=== PATIENT | female | born 1955 | race Caucasian/White ===

== ENCOUNTER 2025-02-15 12:23 | Inpatient (IN) | payer OTHER, SELFPAY ==
[2025-02-15] VITALS (29 sets, daily range): BP systolic 89–167; BP diastolic 15–103; BMI 35.3
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
[2025-02-15 09:22] LABS: % Basophils 1.2 % (0-2); % Eosinophils 2.2 % (0-6); % Immature Granulocytes 0.8 % (0-0.5); % Lymphocytes 17.6 % (20.5-51.1); % Monocytes 5.6 % (1.7-9.3); % Neutrophils 72.6 % (42.2-75.2); Absolute Basophils 0.1 10^3/uL (0-0.2); Absolute Eosinophils 0.2 10^3/uL (0-0.7); Absolute Immature Granulocytes 0.1 10^3/uL (0-0.05); Absolute Lymphocytes 1.6 10^3/uL (1.2-3.4); Absolute Monocytes 0.5 10^3/uL (0.1-0.6); Absolute Neutrophils 6.6 10^3/uL (1.4-6.5); Hematocrit 38.4 % (37.0-47.0); Mean Corp Hgb Conc. 33.9 g/dL (33.0-37.0); Mean Corpuscular Hgb 30.9 pg (27.0-31.0); Mean Corpuscular Volume 91.2 fL (81.0-99.0); Mean Platelet Volume 10.9 fL (7.4-10.4); Nucleated Red Blood Cells % 0 %; Platelet Count 201 10^3/uL (130-400); Red Blood Cell Count 4.21 10^6/uL (4.20-5.40); Red Cell Dist. Width 14.1 % (11.5-14.5)
[2025-02-15] MEDS: TORADOL 30 MG IV (09:26)
[2025-02-15 09:36] LABS: ALT (SGPT) < 10 U/L (0-35); AST (SGOT) 16 U/L (14-36); Albumin 4.7 g/dl (3.5-5.0); Alkaline Phosphatase 101 U/L (38-126); Blood Urea Nitrogen 14 mg/dl (7-17); Calcium 10.1 mg/dl (8.4-10.2); Carbon Dioxide 23 mmol/L (22-30); Chloride 111 mmol/L (98-107); Estimated Creatinine Clearance 52 ml/min; Glucose 108 mg/dl (70-99); Potassium 3.8 mmol/L (3.5-5.1); Sodium 142 mmol/L (135-145); Total Bilirubin 0.5 mg/dl (0.2-1.3); Total Protein 8.3 g/dl (6.3-8.2); eGFR > 60.00
[2025-02-15 09:39] LABS: Erythrocyte Sed Rate 37 mm/hour (0-20)
[2025-02-15 09:53] LABS: Troponin I 0.081 ng/ml
[2025-02-15] MEDS: NITROSTAT (SUBLINGUAL) 0.4 MG SL ×3 (10:11→10:34)
[2025-02-15] MEDS: LOW STRENGTH ASPIRIN 324 MG PO (10:11)
[2025-02-15] MEDS: HEPARIN 4000 UNITS IV (10:36)
[2025-02-15] MEDS: HEPARIN 25000 UNITS/250 ML IV (10:39)
[2025-02-15 10:50] LABS: APTT 27.2 Sec (23.4-35.0)
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
--- NOTE | 2025-02-15 11:38 | HPS.HSE ---
Family Physician
-
Family Physician: Fredi Miller
Chief Complaint
-
Arm heaviness, chest pressure
History of Present Illness
69-year-old female presents with symptoms of bilateral arm heaviness and subsequent chest pressure, nausea. Symptoms initially started last night around 10 PM and continued on and off all night long but this morning became significantly more
intense prompting her evaluation in the emergency room.
Denies history of similar symptoms in the past. Denies cardiovascular history.
Is sedentary at home, does not exercise. She also realizes that her lifestyle is not healthy. She does not eat well and she continues to smoke.
Medical History
Past Medical History
Past Medical History: Reports Other
Additional Past Medical History:
Hypothyroidism
Essential hypertension
Past Surgical History: Reports Other
Additional Past Surgical History:
Right nephrectomy
Social History
Tobacco: Smoker
Alcohol: None
Drug: None
Personal:
Living: With Family
Employment: Retired
Family History
Family History: Not pertinent
Allergies / Home Medications
Allergies reflects when Allergies were last updated in [employer].
Home Medications with original date entered in [employer]
Allergy/Medication List:
Allergies
Allergy/AdvReac Type Severity Reaction Status Date / Time
codeine Allergy Hives Verified 02/15/25 08:45
Home Medications
lisinopril 40 mg tablet 40 mg PO DAILY Blood Pressure 03/05/19
diltiazem HCl 240 mg capsule,24 hr,extended release 240 mg PO DAILY Blood Pressure 02/15/25
levothyroxine 50 mcg tablet (Synthroid) 50 mcg PO DAILY Thyroid 02/15/25
Review of Systems
-
History Source: Patient
A 12 point ROS was completed and negative except as noted: Yes
Physical Exam
Vital Signs
Vital Signs
Temp Pulse Resp BP Pulse Ox
98.9 F 63 13 142/85 97
02/15/25 08:45 02/15/25 11:00 02/15/25 11:00 02/15/25 11:00 02/15/25 11:00
Physical Exam
General: Well Developed, Well Nourished, No Apparent Distress and Comfortable
HEENT: NormoCephalic, Anicteric and Moist mucous membranes
Respiratory: Wheezes (Mild end expiratory wheezes)
Cardiac: S1/S2 and Regular Rhythm
Breast: Deferred by me
GI: Soft, Non Tender and Non Distended
Genito-urinary: Deferred by me
Musculoskeletal: No Clubbing, No Cyanosis and No Edema
Skin: Warm and Dry
Neuro: AO x 3
Hematologic/Lymphatic: No Lymphadenopathy
Psych: Calm
Laboratory Results
-
02/15/25 09:12
02/15/25 09:12
Laboratory Results
APTT 27.2 Sec (23.4-35.0) 02/15/25 10:21
Total Bilirubin 0.5 mg/dl (0.2-1.3) 02/15/25 09:12
AST 16 U/L (14-36) 02/15/25 09:12
ALT < 10 U/L (0-35) 02/15/25 09:12
Alkaline Phosphatase 101 U/L (38-126) 02/15/25 09:12
Troponin I 0.081 ng/ml H* 02/15/25 09:12
Impression/Plan
-
ACS -presentation with bilateral arm and chest heaviness, nausea. Mild troponin elevation noted. EKG shows normal sinus rhythm with nonspecific ST/T wave abnormality.
Admit to IVU. N.p.o., await cardiac catheterization. Cardiology consulted. Check echocardiogram.
Started on IV heparin, nitroglycerin. Currently chest pain-free.
Start aspirin daily. Needs to work on lifestyle changes including diet, exercise, weight loss.
Check lipid panel. Not currently on a statin, states she had side effects from a statin in the past but cannot remember which one.
Essential hypertension -resume lisinopril, diltiazem.
Hypothyroidism -resume levothyroxine. Check TSH.
Tobacco dependence -cessation advised.
Obesity due to excess calories
Full code
[2025-02-15] MEDS: NITROGLYCERIN PREMIX 250 IV (11:50)
[2025-02-15 12:07] LABS: HDL Cholesterol 62 mg/dl; LDL Cholesterol, Calculated 202 mg/dl; Total Cholesterol 300 mg/dl (50-199); Triglyceride 181 mg/dl (10-149); Very Low Density Lipoprotein 36 mg/dl (0-30)
[2025-02-15 14:03] LABS: ACT-LR - POC 173 Seconds (116-155)
[2025-02-15 14:15] LABS: Glycohemoglobin (HgbA1c) 5.6 % (4.0-5.6)
[2025-02-15 14:18] LABS: ACT-LR - POC 244 Seconds (116-155)
[2025-02-15 14:32] LABS: ACT-LR - POC 287 Seconds (116-155)
--- NOTE | 2025-02-15 15:27 | CM ---
Reviewed chart. Met with Mrs. Shabazz and her significant other to review discharge plans. She states prior to admission she resides with her significant other in a second floor apartment with twelve steps to enter. She states prior to admission she
was independent with ambulation and adls. She states she does not have any DME in the home. She states she has a prescription plan and uses [facility]. Medical work-up in progress. The discharge plan is to return home with her
significant other when medically stable.
[2025-02-15] MEDS: NSS 1000 IV (15:43)
[2025-02-15] MEDS: TOPROL XL 25 MG PO (16:57)
[2025-02-15] MEDS: LIPITOR 40 MG PO (16:57)
[2025-02-15] MEDS: TYLENOL 650 MG PO (19:29)
--- NOTE | 2025-02-15 19:45 | PTCARENOTE ---
Received pt post cath. VSS. Right radial cath site w/ 15 ml of air and intact. Pt denies chest pain. Niitroglycerin drip at 20 mcg/hr. Post angiography orders noted. Will monitor.
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
--- NOTE | 2025-02-15 23:01 | ITS.CL.CATH ---
[facility] - Catheterization
Cardiac Catheterization
Procedure Report:
LEFT HEART CATH AND CORONARY INTERVENTION
Date of Procedure: February 15, 2025
Referring: Dr. Mahendra Hanks
PROCEDURES:
1. Left heart catheterization with coronary and single-plane left ventriculography
2. Successful stenting of OM 2 with a 2.5 x 12 mm [place] stent that was postdilated with a 2.5 mm noncompliant balloon
INDICATION: This is a 69-year-old female with multiple cardiovascular risk factors who presented to [facility] for evaluation of substernal chest pain that began on the evening prior to admission persisting throughout much of the night.
Her symptoms improved with IV heparin and nitroglycerin but persisted and a low-grade fashion and she is now referred for coronary angiography
ACCESS: Right radial artery, 6 Pashto sheath
HEMODYNAMICS (mmHg):
AO (s/d, m) : 128/83, 103
LV (s/d) : 121/10
LVEDP : 13
CORONARY FINDINGS
Dominance: Right
LEFT MAIN: Normal
LEFT ANTERIOR DESCENDING: The LAD arises normally from the left main and runs in the anterior interventricular groove. A single sizable diagonal branch arises from the proximal third of the LAD and has a 95% mid stenosis. The mid LAD beyond the
diagonal branch has a 30% stenosis and only minor luminal irregularities are noted throughout the remainder of the LAD.
CIRCUMFLEX: The circumflex is a medium caliber nondominant vessel. OM1 is very small. The mid circumflex has a 60% stenosis extending into a moderate caliber OM 3. OM 2 arises at the distal part of this 60% lesion and is 100% occluded with faint
filling into the proximal vessel.
RIGHT CORONARY: The right coronary artery is a dominant vessel with tandem 70 and 60% proximal stenoses, long 30-40% mid stenosis and 60% distal stenosis. The PDA is patent. The posterolateral branch has an eccentric and angulated 90% stenosis
VENTRICULOGRAPHY: Left ventriculography is performed in an MCKEON projection. The digital single-plane left ventricular ejection fraction is estimated at 60% with mild posterolateral hypokinesis
ANGIOPLASTY PROCEDURE DETAIL: Upon review of the diagnostic catheterization films the decision was made to proceed with percutaneous revascularization of the occluded OM 2. Intravenous heparin was administered and the ACT was monitored throughout
the procedure. The left main was cannulated with an EBU 3.5 guiding catheter and a short BMW guidewire across the occluded segment in OM 2 and was advanced into a tortuous distal vessel. A long BMW guidewire was positioned in the midportion of OM
3. Balloon predilation was performed using a 2.0 x 12 mm Euphora balloon which was inflated to nominal pressures. A 2.5 x 12 mm Sathish stent was in position with angiographic and fluoroscopic guidance and implanted in the midportion of OM 2 at 12
rose and the stent was then postdilated with a 2.5 x 8 mm noncompliant balloon distally and in the midportion of the stent at 12 rose and proximally at 14 rose
SEDATION: 60 minutes of procedural sedation was utilized. An independent biomedical engineering technologist was present to assist with and help manage the patient's level of consciousness and physiologic status
RADIATION SUMMARY: Fluoro Time (min): 8.7, Dose (mGy): 863, DAP (Gy.cm2) : 45.6
CONCLUSIONS
1. Acute coronary syndrome secondary to 100% occlusion of OM 2 with placement of a 2.5 x 12 mm Sathish stent that was implanted at 12 rose and postdilated with a 2.5 mm noncompliant balloon between 12 and 14 rose as above
2. Residual coronary disease involving the first diagonal branch, proximal and distal RCA as well as posterolateral branch
RECOMMENDATIONS
1. Uninterrupted dual antiplatelet therapy for 1 year
2. High intensity statin
3. Guideline directed medical therapy for treatment of hypertension
4. Medical management for residual coronary disease. If patient develops recurring anginal symptoms could consider stress testing or referral for hemodynamic assessment
5. Check echocardiogram
Copy to: Dr. Mahendra Hanks
--- NOTE | 2025-02-15 23:19 | PTCARENOTE ---
Trending trops, 2114 results back 26.7, covering CT PA made aware, will continue to trend. HR mid 50's, 2L O2 via NC applied for overnight. Titrating Nitro as per orders, infusing at 10mcg/hr at this time, pt remains cp free.
--- NOTE | 2025-02-15 23:32 | PTCARENOTE ---
disregard bp 89/15, cuff not properly placed at the time.
[2025-02-16] VITALS (7 sets, daily range): BP systolic 126–175; BP diastolic 76–114; BMI 35.0
[2025-02-16] MEDS: ULTRAM 50 MG PO (02:36)
[2025-02-16 03:25] LABS: Blood Urea Nitrogen 19 mg/dl (7-17); Calcium 9.5 mg/dl (8.4-10.2); Carbon Dioxide 22 mmol/L (22-30); Chloride 112 mmol/L (98-107); Estimated Creatinine Clearance 52 ml/min; Glucose 104 mg/dl (70-99); Potassium 3.8 mmol/L (3.5-5.1); Sodium 139 mmol/L (135-145); eGFR > 60.00
[2025-02-16] MEDS: SYNTHROID 50 MCG PO (07:09)
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
--- NOTE | 2025-02-16 07:54 | W.PN.HOSP.TC ---
Addendum entered and electronically signed by Jones Melissa DO 02/16/25 10:27:
TSH 68 in May 2024. TSH now 88.
Free T4 0.36.
Will increase Levothyroxine dose to 75mcg daily.
Repeat TSH in 4 weeks with PCP.
Original Note:
Today's Communication/Plan
-
Echocardiogram
Assessment / Plan
Assessment / Plan
Gen-AAOx3, NAD
HEENT-NC, AT, anicteric, clear oral mm
Neck-supple
CV-reg, no M, +S1/S2
Lungs-clear B/L
Abd-soft, NT, ND
Ext-no edema
Musculoskeletal-no cyanosis, clubbing
Skin-warm and dry
Neuro-grossly non-focal
Psych-calm, cooperative
NSTEMI -underwent cardiac catheterization February 15, 100% occlusion of OM 2 with Sathish stenting of OM 2. Residual CAD involving the first diagonal branch, proximal and distal RCA as well as posterior lateral branch. Now on aspirin and Brilinta.
Heparin IV discontinued. Wean off nitroglycerin.
Transition from diltiazem to metoprolol, discussed with cardiology and nursing.
Troponin now trending down.
Hyperlipidemia -LDL 202, total cholesterol 300, triglycerides 181, HDL 62. Atorvastatin 40 mg daily started.
Hypothyroidism -TSH 88. Check free T4. Has been taking levothyroxine 50 mcg daily at home. Patient says the dose was doubled a few months ago. She also admits to not taking her Synthroid on an empty stomach apart from other medications or food.
Discussed in detail with patient today that she needs to take her Synthroid first thing in the morning, on an empty stomach, apart from food or other medications. She needs to wait at least 1 hour before eating or drinking or taking other meds.
Tobacco dependence
Obesity due to excess calories
Full code
Anticipated Discharge: Within 24 hours
Subjective/Interval History
-
Date of Service: February 16, 2025
Patient seen and examined. Feels much better, no complaints.
Objective Data
-
Labs:
Laboratory Results
02/15/25 02/16/25
16:45 02:44
APTT Cancelled
Sodium 139
Potassium 3.8
Chloride 112 H
Carbon Dioxide 22
BUN 19 H
Creatinine 1.0
Glucose 104 H
Calcium 9.5
Vital Signs:
Vital Signs
Temp Pulse Resp BP Pulse Ox
98.2 F 61 18 151/85 98
02/16/25 03:46 02/16/25 07:31 02/16/25 03:46 02/16/25 07:31 02/16/25 03:46
I&O
02/15/25 02/16/25 02/17/25
06:59 06:59 06:59
Intake Total 1095 / 1095
Balance 1095 / 1095
Review of Systems
-
History Source: Patient
All other systems: Reviewed and negative
[2025-02-16] MEDS: ASPIR LOW (ENTERIC COATED) 81 MG PO (07:57)
[2025-02-16] MEDS: ZESTRIL 40 MG PO (07:57)
[2025-02-16] MEDS: BRILINTA 90 MG PO ×2 (07:58→19:15)
[2025-02-16 08:58] LABS: Free T4 0.36 ng/dl (0.78-2.19)
--- NOTE | 2025-02-16 10:06 | CM ---
Reviewed chart. Telephone call to [employer] to check on her co-pay for Brilinta 90 mg po bid. Her co-pay would be $4.90 a month. Telephone call to [facility] in [place] to check if they have Brilinta 90 mg po in stock. [facility] states they have one full bottle in stock. Met with Mrs. Shabazz to review co-pay for Brilinta 90 mg po bid of $4.90 a month. She is agreeable to the co-pay. Prior to admission she resides with her significant other in a second floor
apartment with twelve steps to enter. Prior to admission she was independent with ambulation and adls. She does not have any DME in the home. She has a prescription plan and uses [facility]. Medical work-up in progress The discharge plan
is to return home with her significant other when medically stable.
[2025-02-16] MEDS: TOPROL XL PO (11:36)
--- NOTE | 2025-02-16 13:27 | PTCARENOTE ---
Pt is AOx3, no complaints of pain or discomfort. Nitro gtt stopped today. SB on tele monitor, VSS. Right radial site CDI. Call herring within reach.
--- NOTE | 2025-02-16 14:50 | PTCARENOTE ---
Pt c/o Of SOB. Placed on 2L O2. Renetta Randolph PA-C made aware. Will continue to monitor.
--- NOTE | 2025-02-16 16:12 | W.PN.UPDATE ---
Update Note
Progress Note Update
Called to see patient complains of shortness of breath. She was placed back on oxygen without significant improvement. Reports feels difficulty taking a deep breath, and particularly is worse with lying flat. She reports she did have this to some
extent prior to admission as well. She reports she was told a long time ago that she had evidence of a hiatal hernia, however there has been no follow-up on this. Chest x-ray without evidence of significant pleural effusions or pulmonary edema.
Added on proBNP to a.m. labs, still pending. Echo reviewed, EF preserved. Will trial IV Lasix 20 mg x 1 and assess response. Will also consider possibility of shortness of breath secondary to Brilinta, and if symptoms persist may need to consider
transition to Plavix.
[2025-02-16] MEDS: LIPITOR 40 MG PO (16:30)
[2025-02-16] MEDS: LASIX 20 MG IV (16:30)
[2025-02-16 16:40] LABS: NT-proBNP 765 pg/ml
--- NOTE | 2025-02-16 22:54 | PTCARENOTE ---
Patient received at change of shift resting in the bed. Right radial cath site BRANDEE, ecchymotic but soft to palpation. Radial pulse palpable. The patient denies pain. Reports she was lightheaded earlier in the day but this has since resolved. Offers
no complaints at this time. Requesting something to aid sleep, PRN melatonin ordered by house [employer]. Plan of care discussed. Call herring within reach. Care ongoing.
[2025-02-16] MEDS: MELATONIN 5 MG PO (22:56)
[2025-02-16] MEDS: TYLENOL 650 MG PO (22:56)
[2025-02-17 03:26] VITALS: BP 156/101
[2025-02-17 03:30] VITALS: BP 153/103
[2025-02-17 04:11] LABS: Blood Urea Nitrogen 18 mg/dl (7-17); Calcium 10.1 mg/dl (8.4-10.2); Carbon Dioxide 22 mmol/L (22-30); Chloride 110 mmol/L (98-107); Estimated Creatinine Clearance 47 ml/min; Glucose 108 mg/dl (70-99); Potassium 3.8 mmol/L (3.5-5.1); Sodium 139 mmol/L (135-145); eGFR 55.07
[2025-02-17] MEDS: SYNTHROID 50 MCG PO (06:13)
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
[2025-02-17 07:44] VITALS: BP 155/95
[2025-02-17] MEDS: TOPROL XL 12.5 MG PO (07:46)
[2025-02-17] MEDS: ASPIR LOW (ENTERIC COATED) 81 MG PO (07:46)
[2025-02-17] MEDS: BRILINTA 90 MG PO (07:47)
[2025-02-17] MEDS: ZESTRIL 40 MG PO (07:47)
[2025-02-17] MEDS: ORETIC 12.5 MG PO (08:33)
--- NOTE | 2025-02-17 11:30 | W.DS.TRANS ---
DC Summary - Cloth Weaver
-
Discharge Instructions:
Discharge Diagnosis/Procedures Myocardial infarction, angioplasty with stent to
obtuse marginal artery
Diet Low Cholesterol,Low Fat
Activity As tolerated
Driving Restrictions No driving for 24 hours
Bathing Restrictions None
Blood Work BMP in 1 week
TSH in 4 weeks
Other Services Cardiac Rehab
Specialty Instructions Weigh Daily
Instructions:
Stand-Alone Forms: DC Instructions- Cath/EP Lab
Changes to Home Medications: Yes
Discharge Medications:
DC Medications w/original date entered in [email or web address]
lisinopril 40 mg tablet 40 mg PO DAILY Blood Pressure 03/05/19
aspirin 81 mg tablet,delayed release 81 mg PO DAILY #0 tabs 02/17/25
atorvastatin 40 mg tablet 40 mg PO QPM #30 tabs 02/17/25
hydrochlorothiazide 25 mg tablet 25 mg PO DAILY #30 tabs 02/17/25
levothyroxine 75 mcg tablet 75 mcg PO DAILY @ 0600 #30 tabs 02/17/25
metoprolol succinate 25 mg tablet,extended release 24 hr 12.5 mg (1/2 x 25 mg) PO DAILY #30 tabs 02/17/25
nitroglycerin 0.4 mg sublingual tablet 0.4 mg sublingual [id number] PRN ANGINA #30 tabs 02/17/25
ticagrelor 90 mg tablet (Brilinta) 90 mg PO BID #60 tabs 02/17/25
Home Medication Changes
Stop diltiazem
Pending Results: No
[2025-02-17 11:47] VITALS: BP 155/96
--- NOTE | 2025-02-17 12:34 | W.PN.HOSP.TC ---
Today's Communication/Plan
-
Discharge
Assessment / Plan
Assessment / Plan
Gen-AAOx3, NAD
HEENT-NC, AT, anicteric, clear oral mm
Neck-supple
CV-reg, no M, +S1/S2
Lungs-clear B/L
Abd-soft, NT, ND
Ext-no edema
Musculoskeletal-no cyanosis, clubbing
Skin-warm and dry
Neuro-grossly non-focal
Psych-calm, cooperative
NSTEMI -underwent cardiac catheterization February 15, 100% occlusion of OM 2 with Sathish stenting of OM 2. Residual CAD involving the first diagonal branch, proximal and distal RCA as well as posterior lateral branch. Now on aspirin and Brilinta.
Heparin IV discontinued.
Transitioned from diltiazem to metoprolol, discussed with cardiology and nursing.
Troponin now trending down.
Episode of shortness of breath noted yesterday, received a dose of IV Lasix 20 mg. BNP noted to be 765. Not requiring oxygen. Shortness of breath resolved.
Hyperlipidemia -LDL 202, total cholesterol 300, triglycerides 181, HDL 62. Atorvastatin 40 mg daily started.
Hypothyroidism -TSH 88. Free T4 0.36. Has been taking levothyroxine 50 mcg daily at home. Patient says the dose was doubled a few months ago. She also admits to not taking her Synthroid on an empty stomach apart from other medications or food.
Discussed in detail with patient today that she needs to take her Synthroid first thing in the morning, on an empty stomach, apart from food or other medications. She needs to wait at least 1 hour before eating or drinking or taking other meds.
Synthroid dose increased to 75 mcg daily, prescription sent to her pharmacy.
Tobacco dependence -cessation advised.
Obesity due to excess calories
Full code
Dispo -medically stable for discharge home today. Follow-up with PCP and cardiology. Updated at the bedside.
33 minutes spent in discharge process.
Anticipated Discharge: Today
Subjective/Interval History
-
Date of Service: February 17, 2025
Patient seen and examined, no complaints.
Objective Data
-
Labs:
Laboratory Results
02/17/25
03:35
Sodium 139
Potassium 3.8
Chloride 110 H
Carbon Dioxide 22
BUN 18 H
Creatinine 1.1 H
Glucose 108 H
Calcium 10.1
Vital Signs:
Vital Signs
Temp Pulse Resp BP Pulse Ox
97.7 F 55 20 155/96 96
02/17/25 11:46 02/17/25 11:47 02/17/25 11:46 02/17/25 11:47 02/17/25 11:46
I&O
02/16/25 02/17/25 02/18/25
06:59 06:59 06:59
Intake Total 1095 / 1095
Balance 1095 / 1095
Review of Systems
-
History Source: Patient
All other systems: Reviewed and negative
== END 2025-02-17 12:22 | disposition home or self-care (01) | DRG 322 ==
LOC: IVU 12:23
PROVIDERS: Internal Medicine Interventional Cardiology; Physician Assistant; ADMITTING PHYSICIAN Hospitalist; CONSULT PHYSICIAN Internal Medicine Cardiovascular Disease; EMERGENCY PHYSICIAN Student in an Organized Health Care Education/Training Program; FAMILY PHYSICIAN Surgery
PROC: 4A023N7 Measurement of Cardiac Sampling and Pressure, Left Heart, Percutaneous Approach (ICD-10-PCS; 2025-02-15)
PROC: B2111ZZ Fluoroscopy of Multiple Coronary Arteries using Low Osmolar Contrast (ICD-10-PCS; 2025-02-15)
PROC: B2151ZZ Fluoroscopy of Left Heart using Low Osmolar Contrast (ICD-10-PCS; 2025-02-15)
PROC: 027034Z Dilation of Coronary Artery, One Artery with Drug-eluting Intraluminal Device, Percutaneous Approach (ICD-10-PCS; 2025-02-15)
DX: I21.4 Non-ST elevation (NSTEMI) myocardial infarction (principal); I10 Essential (primary) hypertension; I25.10 Atherosclerotic heart disease of native coronary artery without angina pectoris; R20.2 Paresthesia of skin; F17.210 Nicotine dependence, cigarettes, uncomplicated; E66.09 Other obesity due to excess calories; G89.29 Other chronic pain; E78.5 Hyperlipidemia, unspecified; E03.9 Hypothyroidism, unspecified; Z90.5 Acquired absence of kidney; Z79.890 Hormone replacement therapy; Z86.74 Personal history of sudden cardiac arrest; S37.09 Other injury of kidney; W34.00XS Accidental discharge from unspecified firearms or gun, sequela; Z88.5 Allergy status to narcotic agent; Z68.35 Body mass index [BMI] 35.0-35.9, adult; Z79.82 Long term (current) use of aspirin
CPT/HCPCS: 71046; 80048; 80053; 80061; 83036; 83880; 84439; 84443; 84484; 85025; 85347; 85652; 85730; 86140; 93005; 93306; 93458; 96374; 96375; 99152; 99153; 99291; 99406; C1725; C1769; C1874; C1894; C9600; Q9967

== ENCOUNTER 2025-02-25 06:56 | Emergency (ER) | payer OTHER, SELFPAY ==
[2025-02-25 07:11] VITALS: BP 122/78
[2025-02-25 07:35] LABS: % Basophils 1.4 % (0-2); % Immature Granulocytes 1.1 % (0-0.5); % Lymphocytes 23.6 % (20.5-51.1); % Monocytes 5.7 % (1.7-9.3); % Neutrophils 64.2 % (42.2-75.2); Absolute Basophils 0.1 10^3/uL (0-0.2); Absolute Eosinophils 0.3 10^3/uL (0-0.7); Absolute Immature Granulocytes 0.1 10^3/uL (0-0.05); Absolute Monocytes 0.5 10^3/uL (0.1-0.6); Absolute Neutrophils 5.4 10^3/uL (1.4-6.5); Hematocrit 35.4 % (37.0-47.0); Hemoglobin 12.2 g/dL (12.0-16.0); Mean Corp Hgb Conc. 34.5 g/dL (33.0-37.0); Mean Corpuscular Hgb 30.7 pg (27.0-31.0); Mean Corpuscular Volume 88.9 fL (81.0-99.0); Mean Platelet Volume 11.2 fL (7.4-10.4); Nucleated Red Blood Cells % 0 %; Platelet Count 235 10^3/uL (130-400); Red Blood Cell Count 3.98 10^6/uL (4.20-5.40); Red Cell Dist. Width 13.2 % (11.5-14.5); White Blood Cell Count 8.4 10^3/uL (4.8-10.8)
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
[2025-02-25 08:00] VITALS: BP 107/73
[2025-02-25 08:07] LABS: ALT (SGPT) < 10 U/L (0-35); AST (SGOT) 17 U/L (14-36); Albumin 4.4 g/dl (3.5-5.0); Alkaline Phosphatase 86 U/L (38-126); Blood Urea Nitrogen 41 mg/dl (7-17); Calcium 11.3 mg/dl (8.4-10.2); Carbon Dioxide 23 mmol/L (22-30); Chloride 107 mmol/L (98-107); Estimated Creatinine Clearance 34 ml/min; Glucose 99 mg/dl (70-99); Potassium 3.8 mmol/L (3.5-5.1); Sodium 139 mmol/L (135-145); Total Bilirubin 0.6 mg/dl (0.2-1.3); Total Protein 7.7 g/dl (6.3-8.2); eGFR 37.96
[2025-02-25 08:38] LABS: NT-proBNP 506 pg/ml
[2025-02-25 09:47] VITALS: BP 121/85
[2025-02-25 10:00] VITALS: BP 111/61
[2025-02-25 10:21] LABS: D-Dimer 7.37 ug/mlFEU (0.00-0.50)
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
[2025-02-25 11:38] VITALS: BP 121/81
[2025-02-25] MEDS: LR 1000 IV (11:38)
[2025-02-25 12:00] VITALS: BP 119/68
== END 2025-02-25 13:35 | disposition home or self-care (01) ==
LOC: EMR 06:56
PROVIDERS: EMERGENCY PHYSICIAN Emergency Medicine; FAMILY PHYSICIAN Physician Assistant; OTHER PHYSICIAN Internal Medicine Cardiovascular Disease
DX: R06.09 Other forms of dyspnea (principal); I25.10 Atherosclerotic heart disease of native coronary artery without angina pectoris; I10 Essential (primary) hypertension; E03.9 Hypothyroidism, unspecified; F17.200 Nicotine dependence, unspecified, uncomplicated; Z79.02 Long term (current) use of antithrombotics/antiplatelets; Z79.82 Long term (current) use of aspirin; Z79.899 Other long term (current) drug therapy
CPT/HCPCS: 99285; 96360; 71046; 71275; 80053; 83880; 84484; 85025; 85379; 93005; Q9967

== ENCOUNTER 2025-03-27 13:39 | Emergency (ER) | payer OTHER, SELFPAY ==
[2025-03-27 13:53] VITALS: BP 124/85
[2025-03-27 14:17] LABS: Hematocrit 37.6 % (37.0-47.0); Hemoglobin 12.6 g/dL (12.0-16.0); Mean Corp Hgb Conc. 33.5 g/dL (33.0-37.0); Mean Corpuscular Volume 88.1 fL (81.0-99.0); Nucleated Red Blood Cells % 0 %; Platelet Count 253 10^3/uL (130-400); Red Cell Dist. Width 13.0 % (11.5-14.5)
[2025-03-27 14:28] LABS: INR 0.98; PT 13.3 Sec (11.4-14.6)
[2025-03-27 14:40] LABS: ALT (SGPT) < 10 U/L (0-35); AST (SGOT) 16 U/L (14-36); Albumin 4.4 g/dl (3.5-5.0); Alkaline Phosphatase 101 U/L (38-126); Blood Urea Nitrogen 28 mg/dl (7-17); Calcium 10.7 mg/dl (8.4-10.2); Carbon Dioxide 22 mmol/L (22-30); Chloride 105 mmol/L (98-107); Glucose 114 mg/dl (70-99); Potassium 4.0 mmol/L (3.5-5.1); Sodium 138 mmol/L (135-145); Total Protein 7.6 g/dl (6.3-8.2); eGFR 45.07
[2025-03-27 14:46] LABS: Troponin I 0.013 ng/ml
[2025-03-27] MEDS: NORCO 5/325 1 TABLET PO (17:45)
[2025-03-27 18:00] VITALS: BP 129/97
[2025-03-27 19:12] VITALS: BP 106/85
[2025-03-27 20:00] VITALS: BP 114/91
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
== END 2025-03-27 21:09 | disposition home or self-care (01) ==
LOC: EMR 13:39
PROVIDERS: Student in an Organized Health Care Education/Training Program; EMERGENCY PHYSICIAN Emergency Medicine; FAMILY PHYSICIAN Physician Assistant Medical
DX: R06.00 Dyspnea, unspecified (principal); M25.572 Pain in left ankle and joints of left foot; I25.2 Old myocardial infarction; I11.0 Hypertensive heart disease with heart failure; I50.9 Heart failure, unspecified; Z95.5 Presence of coronary angioplasty implant and graft
CPT/HCPCS: 99285; 71046; 73610; 80053; 83880; 84484; 85025; 85610; 93005

== ENCOUNTER 2025-04-27 08:34 | Inpatient (IN) | payer OTHER, SELFPAY ==
[2025-04-26] VITALS (16 sets, daily range): BP systolic 105–138; BP diastolic 69–107; BMI 34.0
[2025-04-26 01:46] LABS: Hematocrit 35.9 % (37.0-47.0); Hemoglobin 11.6 g/dL (12.0-16.0); Mean Corp Hgb Conc. 32.3 g/dL (33.0-37.0); Mean Corpuscular Volume 90.7 fL (81.0-99.0); Nucleated Red Blood Cells % 0 %; Platelet Count 217 10^3/uL (130-400); Red Cell Dist. Width 14.1 % (11.5-14.5)
[2025-04-26 02:14] LABS: Blood Urea Nitrogen 30 mg/dl (7-17); Calcium 10.2 mg/dl (8.4-10.2); Carbon Dioxide 21 mmol/L (22-30); Chloride 110 mmol/L (98-107); Estimated Creatinine Clearance 43 ml/min; Glucose 99 mg/dl (70-99); Sodium 139 mmol/L (135-145); eGFR 49.31
[2025-04-26 02:31] LABS: Troponin I 0.574 ng/ml
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
[2025-04-26] MEDS: NITROSTAT (SUBLINGUAL) 0.4 MG SL (03:31)
[2025-04-26] MEDS: HEPARIN 4000 UNITS IV (03:33)
[2025-04-26] MEDS: HEPARIN 25000 UNITS/250 ML IV (03:43)
[2025-04-26 03:58] LABS: APTT 26.5 Sec (23.4-35.0)
--- NOTE | 2025-04-26 04:59 | HPS.HSE ---
Family Physician
-
Family Physician: Stephan Macario
Chief Complaint
-
Chest pain
History of Present Illness
This is a 70-year-old female with past medical history significant for hypertension, hypothyroid who was recently found to have NSTEMI in February status post PCI with stenting of OM 2 and found to have some residual disease, preserved EF presenting
again to the emergency department with left arm discomfort similar to the episode prior to the emergency department previously.
Patient reported that she awoke with severe left and discomfort starting from left shoulder to her left hand. It was 8 out of 10. She arose out of due to concern. She said similar to last time she not have any nausea vomiting or
diaphoresis. She did not feel short of breath. In the last episode she had bilateral heaviness and pain. She took a dose of sublingual nitroglycerin with improvement in her symptoms after EMS arrived. On arrival in the emergency department she
took her second dose of sublingual nitroglycerin and she has been chest pain-free since then.
Patient reports compliance with aspirin and Plavix. She has also been compliant with her statin as well as her metoprolol and PRAVEEN inhibitor.
In the Emergency Department patient was hemodynamically stable with a blood pressure of 110/70, pulse of 78 and oxygen saturation of 100% on room air. ECG shows normal sinus rhythm at rate of [address] depressions in V 2 through 4. Initial
troponin was 0.057.
CBC was unremarkable
Electrolytes BUN/creatinine were unremarkable with potassium pending
Medical History
Past Medical History
Past Medical History: Reports CAD (Status post KS with PCI to OM 07 February 2025) and Other
Additional Past Medical History:
Hypothyroidism
Essential hypertension
Past Surgical History: Reports Other
Additional Past Surgical History:
Right nephrectomy
Social History
Tobacco: Smoker
Alcohol: None
Drug: None
Personal:
Living: With Family
Employment: Retired
Family History
Family History: Not pertinent
Allergies / Home Medications
Allergies reflects when Allergies were last updated in [facility].
Home Medications with original date entered in [facility]
Allergy/Medication List:
Allergies
Allergy/AdvReac Type Severity Reaction Status Date / Time
codeine Allergy Hives Verified 03/27/25 13:56
Home Medications
lisinopril 40 mg tablet 40 mg PO DAILY Blood Pressure 03/05/19
aspirin 81 mg tablet,delayed release 81 mg PO DAILY #0 tabs 02/17/25
atorvastatin 40 mg tablet 40 mg PO QPM #30 tabs 02/17/25
hydrochlorothiazide 25 mg tablet 25 mg PO DAILY #30 tabs 02/17/25
levothyroxine 75 mcg tablet 75 mcg PO DAILY @ 0600 #30 tabs 02/17/25
metoprolol succinate 25 mg tablet,extended release 24 hr 12.5 mg (1/2 x 25 mg) PO DAILY #30 tabs 02/17/25
clopidogrel 75 mg tablet 75 mg PO DAILY #38 tabs 02/25/25
famotidine 20 mg tablet (Pepcid) 20 mg PO BID 02/25/25
nitroglycerin 0.4 mg sublingual tablet 0.4 mg sublingual [id number] PRN chest pain 02/25/25
tramadol 50 mg tablet 50 - 100 mg (1 - 2 x 50 mg) PO Q8H PRN Pain #15 tabs 03/27/25
Review of Systems
-
Constitutional: Reports No Symptoms
EENT: Reports No Symptoms
Respiratory: Reports No Symptoms
Cardiac: Reports No Symptoms
Abdomen/GI: Reports No Symptoms
: Reports No Symptoms
Musculoskeletal: Reports No Symptoms
Skin: Reports No Symptoms
Neurological: Reports No Symptoms
Endocrine: Reports No Symptoms
Hematologic/Lymphatic: Reports No Symptoms
Psych: Reports No Symptoms
Physical Exam
Vital Signs
Vital Signs
Temp Pulse Resp BP Pulse Ox
97.7 F 58 15 106/68 98
04/26/25 01:28 04/26/25 03:31 04/26/25 03:31 04/26/25 03:36 04/26/25 03:31
Physical Exam
General: Well Developed, Well Nourished, No Apparent Distress and Comfortable
HEENT: NormoCephalic, Anicteric and Moist mucous membranes
Respiratory: Wheezes (Mild end expiratory wheezes)
Cardiac: S1/S2 and Regular Rhythm
Breast: Deferred by me
GI: Soft, Non Tender and Non Distended
Genito-urinary: Deferred by me
Musculoskeletal: No Clubbing, No Cyanosis and No Edema
Skin: Warm and Dry
Neuro: AO x 3
Hematologic/Lymphatic: No Lymphadenopathy
Psych: Calm
Laboratory Results
-
04/26/25 01:34
04/26/25 01:35
Laboratory Results
APTT 26.5 Sec (23.4-35.0) 04/26/25 01:35
Total Bilirubin Cancelled 04/26/25 01:35
AST Cancelled 04/26/25 01:35
ALT Cancelled 04/26/25 01:35
Alkaline Phosphatase Cancelled 04/26/25 01:35
Troponin I 0.574 ng/ml H* 04/26/25 01:35
Data Reviewed
-
Medical Tests (Nuc Med, Echo, EKG etc): Image Personally Visualized and interpreted
Lab Data: Labs Reviewed by me
Old Records: Reviewed
Impression/Plan
-
IMPRESSION:
This is a 70-year-old female with past medical history significant for hypothyroidism, hypertension, recent diagnosis of CAD status post NSTEMI weight stenting to OM 2 in February but with residual coronary disease presenting to the emergency department
with acute episode of chest pain with symptoms similar to her prior KS. Again has NSTEMI with trop 0.54, ECG is NSR but with depression in anterior leads. She is hemodynamically stable and currently has no CP since she received a 2nd dose of nitro
several hours ago.
PLAN:
NSTEMI - Likely related to residual disease. Patient reports compliance with DAPT
- admit to telemetry
- continue DAPT
- heparin gtt
- ntg prn cp, if cp recurs will start heparin gtt
- echo
- recent lipid labs so no repeat, continue statin
- continue acei and beta blockade
- cardiology consult to DCA
DVT PPX - on hep sq
Code status - Full code
[2025-04-26 06:18] LABS: Troponin I 0.563 ng/ml
[2025-04-26] MEDS: PERCOCET 5/325 1 TABLET PO ×3 (06:20→19:33)
[2025-04-26] MEDS: SYNTHROID 75 MCG PO (06:20)
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
[2025-04-26] MEDS: ZESTRIL 40 MG PO (07:56)
[2025-04-26] MEDS: PEPCID 20 MG PO ×2 (07:57→19:33)
[2025-04-26] MEDS: PLAVIX 75 MG PO (07:57)
[2025-04-26] MEDS: ASPIR LOW (ENTERIC COATED) 81 MG PO (07:57)
[2025-04-26] MEDS: TOPROL XL PO (07:58)
[2025-04-26 09:10] LABS: Troponin I 0.530 ng/ml
[2025-04-26 09:33] LABS: Blood Urea Nitrogen 27 mg/dl (7-17); Calcium 10.3 mg/dl (8.4-10.2); Carbon Dioxide 20 mmol/L (22-30); Chloride 112 mmol/L (98-107); Estimated Creatinine Clearance 43 ml/min; Glucose 102 mg/dl (70-99); HDL Cholesterol 43 mg/dl; LDL Cholesterol, Calculated 68 mg/dl; Magnesium 2.3 mg/dl (1.6-2.3); Potassium 4.0 mmol/L (3.5-5.1); Sodium 141 mmol/L (135-145); Very Low Density Lipoprotein 21 mg/dl (0-30); eGFR 49.31
[2025-04-26 10:15] LABS: APTT 75.6 Sec (23.4-35.0)
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
[2025-04-26 12:06] LABS: Troponin I 0.523 ng/ml
--- NOTE | 2025-04-26 12:08 | EDRN ---
Provider/ cardiology notified of critical value troponin - though it is trending down
--- NOTE | 2025-04-26 13:46 | ITS.CL.CATH ---
[employer] - Catheterization
Cardiac Catheterization
Procedure Report:
LEFT HEART CATH AND CORONARY INTERVENTION
Date of Procedure: April 26, 2025
Referring: Dr. Erlinda Mclean
PROCEDURES:
1. Left heart catheterization, coronary angiogram
2. Moderate Sedation.
3. Successful percutaneous coronary artery intervention of hazy 95% mid left circumflex stenosis with one 2.5 x 18 mm Medtronic Sathish frontier drug-eluting stent, postdilated using IVUS guidance with a 2.5 x 8 mm NC balloon at 16 rose distally and 18
rose proximally with an excellent angiographic and IVUS based result.
4. Intravascular ultrasound (IVUS)
INDICATION: This is a 69-year-old female with multiple cardiovascular risk factors who presented to [facility] for evaluation of substernal chest pain that began on the evening prior to admission persisting throughout much of the night.
Her symptoms improved with IV heparin and nitroglycerin but persisted and a low-grade fashion and she is now referred for coronary angiography
ACCESS: Right radial artery, 6 Khmer sheath
HEMODYNAMICS (mmHg):
AO (s/d, m) : 140/86, 109
LVEDP : 18
CORONARY FINDINGS
Dominance: Right
Left Main Trunk (LMT): �Large caliber vessel that gives rise to the LAD and LCx branches and is free of angiographic disease.
Left Anterior Descending Artery (LAD): �Large caliber vessel that gives off a large caliber bifurcating major diagonal as it courses along the anterior inter-ventricular groove before wrapping around the cardiac apex. The mid-LAD has a 20-30%
stenosis. The inferior limb of the large diagonal has a 80% stenosis that is similar to Kiley.�
Left Circumflex Artery (LCx): �Large caliber vessel that gives off a small caliber first major obtuse marginal (OM), large caliber OM2, and small caliber OM3 as it courses along the atrio-ventricular (AV) groove. �The OM2 has ostial 40-50% stenosis
and the continuation of the LCx after the OM2 take-off has a 95% stenosis just proximal to the widely patent stent from February 2025.�
Right Coronary Artery (RCA): �Large caliber dominant vessel that gives rise to the posterior descending artery (RPDA) and postero-lateral ventricular (RPLV) branches distally. �The proximal RCA has a long area of 80% stenosis. The mid-RCA has
diffuse 30% stenosis. The distal RCA has 40-50% stenosis. The RPL is a small caliber vessel and has a 80% stenosis.�
CORONARY INTERVENTION: We then proceeded with percutaneous coronary intervention of the LCx. The patient was given adjunctive IV unfractionated heparin (target ACT > 300 seconds). After using a 6F EBU 3.5 guide catheter to engage the left main
ostium, an 0.014' RunThrough wire was navigated into the distal OM3. We wired the OM2 for a provisional bifurcational approach. The severe 95% stenosis (ROMY II, type C) was pre-dilated and then stented with a 2.5 x 18 mm Medtronic [place] frontier
drug-eluting stent, which was post-dilated with a 2.5 x 8 mm NC balloon at high pressure. We then performed intravascular imaging with a [place] intravascular ultrasound catheter that showed excellent stent expansion and apposition without proximal
or distal edge dissection. Given ROMY III flow in the OM2 no further intervention was taken. There was 0% residual stenosis of the stented segment and preserved ROMY-3 flow at completion�angiography.
SEDATION: minutes of procedural sedation was utilized. An independent medical records auditor was present to assist with and help manage the patient's level of consciousness and physiologic status
RADIATION SUMMARY: Fluoro Time (min): 8.7, Dose (mGy): 863, DAP (Gy.cm2) : 45.6
CONCLUSIONS
1. Successful percutaneous coronary artery intervention of hazy 95% mid left circumflex stenosis with one 2.5 x 18 mm Medtronic [place] frontier drug-eluting stent, postdilated using IVUS guidance with a 2.5 x 8 mm NC balloon at 16 rose distally and 18
rose proximally with an excellent angiographic and IVUS based result.
2. LVEDP of 18 mmHg.
RECOMMENDATIONS
1. Wean radial band per protocol. Monitor right hand perfusion and for bleeding from the radial site following removal of the vascular-band following trans-radial access.
2. Continue aggressive medical therapy and risk factor modification for secondary CAD prevention.
3. Continue ASA 81 mg daily for life.
4. Continue Plavix for at least 12 months of uninterrupted dual anti-platelet therapy given drug-eluting stent (CADY) implantation to mitigate the risk of stent thrombosis. This is not to be stopped for any reason without the guidance of a
payloader operator.
5. Hydrate with normal saline to mitigate the risk of contrast-induced acute kidney injury.
6. Referral for outpatient cardiac rehab.
7. Follow-up with Dr. Hanks.
Copy to: Dr. Mahendra Hanks and Dr. Aliyah Mclean
[2025-04-26 14:35] LABS: ACT-LR - POC 231 Seconds (116-155)
[2025-04-26 15:15] LABS: ACT-LR - POC 343 Seconds (116-155)
[2025-04-26] MEDS: LIPITOR 40 MG PO (18:07)
--- NOTE | 2025-04-26 18:53 | PTCARENOTE ---
~1600: Received patient out of CCL. R radial TR band in place, site ecchymotic but soft at this time. + pulses, no edema. AOx4, NSR 60s on tele, SBP 120s-130s, RA satting 98%. Pt denies CP at this time, but c/o 7/10 back pain and 3/10 arm pain,
Slick made aware. Also informed provider that patient takes gabapentin and percocet at home to help with pain, no new orders at this time. Home med list updated. Admission questions completed and patient oriented to room and call herring system. All
needs met at this time, call herring within reach.
~6059-7659: Home dose of gabapentin and percocet ordered by hospitalist to better manage patient's pain. Air removed from band around 1730 per protocol. Around 1733, site oozing, +4cc air replaced.
~1800: Air removed from TR band per protocol. No oozing at this time.
~1830: Air removed from TR band per protocol. No oozing at this time.
1900: Air removed from TR band per protocol. VSS. All needs met at this time, call herring within reach. Handoff report given to nightshift RN.
[2025-04-26] MEDS: NEURONTIN 600 MG PO (21:15)
[2025-04-27] VITALS (9 sets, daily range): BP systolic 81–117; BP diastolic 58–88
[2025-04-27] MEDS: PERCOCET 5/325 1 TABLET PO ×3 (04:03→17:55)
[2025-04-27] MEDS: SYNTHROID 75 MCG PO (04:03)
[2025-04-27 04:19] LABS: Hematocrit 32.1 % (37.0-47.0); Hemoglobin 10.5 g/dL (12.0-16.0); Mean Corp Hgb Conc. 32.7 g/dL (33.0-37.0); Mean Corpuscular Volume 89.2 fL (81.0-99.0); Platelet Count 167 10^3/uL (130-400); Red Cell Dist. Width 13.5 % (11.5-14.5)
[2025-04-27 04:33] LABS: Blood Urea Nitrogen 15 mg/dl (7-17); Calcium 9.1 mg/dl (8.4-10.2); Carbon Dioxide 22 mmol/L (22-30); Chloride 114 mmol/L (98-107); Estimated Creatinine Clearance 47 ml/min; Glucose 87 mg/dl (70-99); Potassium 3.9 mmol/L (3.5-5.1); Sodium 141 mmol/L (135-145); eGFR 54.73
--- NOTE | 2025-04-27 06:35 | PTCARENOTE ---
Pt ns on monitor. VSS . Pt with chronic back pain. Percocet PRN given. Pt developed ecchymosis and small hematoma on b/l upper arms from blood pressure cuff. Now using left wrist for BPs. rt wrist post cath dsg CDI. Pt independent in the room. Call
nima w/in reach
[2025-04-27 07:49] LABS: ACT-LR - POC > 397 Seconds (116-155)
[2025-04-27] MEDS: ASPIR LOW (ENTERIC COATED) 81 MG PO (08:19)
[2025-04-27] MEDS: PLAVIX 75 MG PO (08:19)
[2025-04-27] MEDS: ZESTRIL PO (08:21)
[2025-04-27] MEDS: PEPCID 20 MG PO (08:33)
--- NOTE | 2025-04-27 10:14 | W.PN.HOSP.TC ---
Today's Communication/Plan
-
Continue aspirin and Plavix
Continue with beta-sterling as blood pressure permits.
Hold lisinopril.
Assessment / Plan
Assessment / Plan
Non-ST elevation [place] status post PCI and left circumflex stenting 04/26/2025
History of CAD s/p prior PCI OM2 February 2025
Today asymptomatic without chest pain.
Continue with aspirin and Plavix uninterrupted for 12 months at least per cardiology
Continue beta-sterling. Continue with statin.
Consider Lasix with LVEDP of 18 and subjective symptom of shortness of breath
Essential hypertension-hold antihypertensives with blood pressure being on the lower side.
Hypothyroidism-TSH of 14.6 noted but free T4 is normal. Her dose of Synthroid was increased to 2 months ago. With acute issues I would repeat TSH and 2 weeks and if still persistently elevated then consider an increase.
Chronic pain syndrome-continue with home regimen.
DC home when okay from cardiology standpoint
Anticipated Discharge: Within 24 hours
Subjective/Interval History
-
Date of Service: April 27, 2025
No further chest pain.
Feels breathing is not all right, maybe a bit heavy. No cough. No lower extremity edema.
No lightheadedness or dizziness.
Objective Data
-
Labs:
Laboratory Results
04/26/25 04/27/25
19:50 03:55
WBC 5.6
Hgb 10.5 L
Hct 32.1 L
Plt Count 167 D
APTT Cancelled
Sodium 141
Potassium 3.9
Chloride 114 H
Carbon Dioxide 22
BUN 15
Creatinine 1.1 H
Glucose 87
Calcium 9.1
Vital Signs:
Vital Signs
Temp Pulse Resp BP Pulse Ox
98.1 F 103 20 99/65 97
04/27/25 07:01 04/27/25 09:15 04/27/25 07:01 04/27/25 07:02 04/27/25 07:01
Physical Exam
-
General: No Apparent Distress
HEENT: Moist Mucous Membranes
Respiratory: Clear to Auscultation and Non Labored Respirations; Negative Wheezes, Crackles or Accessory Resp Muscle Use
Cardiac: Regular Rhythm and S1/S2
GI: Soft
Musculoskeletal: No Edema
Neuro: AO x 3
Psych: Calm; Negative Confused
Data Reviewed
-
Labs: Labs Reviewed by me
--- NOTE | 2025-04-27 10:37 | PTCARENOTE ---
Pt's Bp 99/65, Lisinopril 40 mg not given, Dr Deluna and Dr Olvera aware. Pt denies dizziness and lightheadedness.
[2025-04-27] MEDS: TOPROL XL 12.5 MG PO (11:44)
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
[2025-04-27] MEDS: LASIX 20 MG PO (14:03)
--- NOTE | 2025-04-27 17:26 | PTCARENOTE ---
Addendum entered by Danielle Taylor RN 04/27/25 17:28:
SOB, according to Pt, was not severe and resolved after about 15 min of rest.
Original Note:
Pt ambuated in halls today, cherelle well, but did c/o ome residual SOB after walking.
[2025-04-27] MEDS: LIPITOR 40 MG PO (17:57)
[2025-04-27] MEDS: NEURONTIN 600 MG PO (21:21)
[2025-04-28] MEDS: PERCOCET 5/325 1 TABLET PO ×2 (00:19→08:12)
[2025-04-28 03:58] VITALS: BP 100/69
[2025-04-28 04:14] VITALS: BMI 33.3
[2025-04-28] MEDS: SYNTHROID 75 MCG PO (04:16)
[2025-04-28 04:37] LABS: Hematocrit 31.2 % (37.0-47.0); Hemoglobin 10.0 g/dL (12.0-16.0); Mean Corp Hgb Conc. 32.1 g/dL (33.0-37.0); Mean Corpuscular Volume 89.9 fL (81.0-99.0); Platelet Count 169 10^3/uL (130-400); Red Cell Dist. Width 13.7 % (11.5-14.5)
--- NOTE | 2025-04-28 06:19 | PTCARENOTE ---
NS to SB on monitor. VSS. C/o chronic back pain. PRN Percocet given. Pt ambulates independently. Call nima w/in reach
[2025-04-28 08:07] VITALS: BP 111/76
[2025-04-28] MEDS: PEPCID 20 MG PO (08:09)
[2025-04-28] MEDS: LASIX 20 MG PO (08:09)
[2025-04-28] MEDS: PLAVIX 75 MG PO (08:10)
[2025-04-28] MEDS: ASPIR LOW (ENTERIC COATED) 81 MG PO (08:10)
--- NOTE | 2025-04-28 09:54 | W.DCSUMMARY ---
Discharge Summary
Discharge Data
Date of Admission: 04/27/25
Date of Discharge: 04/28/25
-
Pending Results: No
Hospital Course
Primary diagnosis:
Non-ST elevation myocardial infarction status post percutaneous intervention and left circumflex stenting 04/26/2025
Secondary diagnosis:
History of coronary artery disease
Essential hypertension
Hypothyroidism
Chronic pain syndrome
Hospital course:
Patient with a history of CAD presented with severe left arm discomfort radiating to the left chest similar to prior symptoms MRI. She denies evaluation in February requiring stenting to 100% occluded OM 2. She says she has been compliant with her
medication intake.. She was ruled in for non-ST elation [place] again with a troponin peak of 0.5.
She had a cardiac cath in treatment of the culprit lesion in the mid left circumflex using a drug-eluting stent. She has residual obstructive coronary disease in the RCA territory and plan is for staged procedure as an outpatient. She was advised
to continue DAPT without interruption, high intensity statins and beta-sterling. She was continued on low-dose Lasix as well.
Today she is without any chest pain or shortness of breath. Afebrile. Blood pressure 111/76 heart rate 59. Chest was clear. No lower extremity edema. Heart send S1 plus S2 irregular. His ambulating without difficulties.
Medically stable for discharge home today.
Consultants on board:
Interventional cardiology-Yari Marcano
Discharge Plan
-
Patient Disposition: Home (Routine Discharge)
Discharge Diagnosis/Procedures: NSTEMI, Angioplasty with stent to left circumflex artery
Diet: Low Cholesterol
Driving Restrictions: No driving for 24 hours
Blood Work: Please get blood work (BMP) 1-2 days prior to 05/11 office visit to reassess kidney function in preparation for staged stenting! ; Obtain TSH blood work in 2-3 weeks -arrange it through your PCP
Other Services: Cardiac Rehab
Stand Alone Forms: DC Instructions- Cath/EP Lab
Referrals:
Oksana Murphy PA-C [Specified Professional Personl, Cardiology] - 05/11/25 9:00 am
Referral Note: You have a cardiology follow-up appointment at the [place] office. Please call with questions
Stephan Macario MD [Family Provider, [facility]] - in less than 1 week
Additional Discharge Medication Instructions: You will return for PCI RCA, the office will call you to set up
Prescriptions:
Continued
lisinopril 40 MG tablet
40 mg PO DAILY
aspirin 81 mg Tablet,Delayed Release (Dr/Ec)
81 mg PO DAILY Qty: 0 0RF
atorvastatin 40 mg Tablet
40 mg PO QPM Qty: 30 0RF
levothyroxine 75 mcg Tablet
75 mcg PO DAILY @ 0600 Qty: 30 0RF
metoprolol succinate 25 mg Tablet Extended Release 24 Hr
12.5 mg PO DAILY Qty: 30 0RF
famotidine [Pepcid] 20 mg Tablet
20 mg PO BID
clopidogrel 75 mg tablet
75 mg PO DAILY Qty: 38 11RF
Rx Instructions:
Take 600mg (8 tablets) in AM 02/26. Then starting 02/27 take 1 tablet once daily.
gabapentin 600 mg Tablet
600 mg PO HS
acetaminophen [Tylenol Extra Strength] 500 mg Tablet
500 mg PO Q6HPRN PRN (Reason: mild pain)
furosemide [Lasix] 20 mg Tablet
20 mg PO DAILY
oxycodone-acetaminophen [Percocet] 5-325 mg Tablet
1 tab PO Q6H PRN (Reason: back pain)
Discharge Orders:
Discharge Patient (As Directed); Ordered 04/28/25
Ordered By: Slick Deluna
Care Plan Goals
Care Plan Goals:
Problem: Readiness for enhanced knowledge related to diagnosis and treatment plan
Goal: Understand your diagnosis and treatment plan needs, including medications if applicable.
Instructions: Know your diagnosis, underlying causes and treatment plan options, including medications if applicable. Consult with your health care team to learn about your diagnosis and treatment plan, including medications if applicable.
Discharge Date and Time
Print Language: GUINEAN
[2025-04-28] MEDS: TOPROL XL 12.5 MG PO (10:13)
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
== END 2025-04-28 11:08 | disposition home or self-care (01) | DRG 322 ==
LOC: IVU 08:34
PROVIDERS: Internal Medicine Interventional Cardiology; Nurse Practitioner Adult Health; Physician Assistant; ADMITTING PHYSICIAN Internal Medicine; ATTENDING PHYSICIAN Internal Medicine; CONSULT PHYSICIAN Internal Medicine Cardiovascular Disease; EMERGENCY PHYSICIAN Emergency Medicine; FAMILY PHYSICIAN Family Medicine
PROC: B240ZZ3 Ultrasonography of Single Coronary Artery, Intravascular (ICD-10-PCS; 2025-04-26)
PROC: B2111ZZ Fluoroscopy of Multiple Coronary Arteries using Low Osmolar Contrast (ICD-10-PCS; 2025-04-26)
PROC: 027034Z Dilation of Coronary Artery, One Artery with Drug-eluting Intraluminal Device, Percutaneous Approach (ICD-10-PCS; 2025-04-26)
PROC: B2151ZZ Fluoroscopy of Left Heart using Low Osmolar Contrast (ICD-10-PCS; 2025-04-26)
PROC: 4A023N7 Measurement of Cardiac Sampling and Pressure, Left Heart, Percutaneous Approach (ICD-10-PCS; 2025-04-26)
DX: I21.4 Non-ST elevation (NSTEMI) myocardial infarction (principal); I50.32 Chronic diastolic (congestive) heart failure; E03.9 Hypothyroidism, unspecified; I11.0 Hypertensive heart disease with heart failure; I25.10 Atherosclerotic heart disease of native coronary artery without angina pectoris; F17.200 Nicotine dependence, unspecified, uncomplicated; G89.4 Chronic pain syndrome; I25.2 Old myocardial infarction; Z79.02 Long term (current) use of antithrombotics/antiplatelets; Z79.82 Long term (current) use of aspirin; Z79.899 Other long term (current) drug therapy; Z90.5 Acquired absence of kidney; Z95.5 Presence of coronary angioplasty implant and graft
CPT/HCPCS: 80048; 80061; 83735; 84439; 84443; 84484; 85025; 85027; 85347; 85730; 92978; 93005; 93458; 96365; 96366; 99285; C1725; C1753; C1874; C1894; C9600; Q9967

== ENCOUNTER 2025-05-19 08:40 | Day surgery (SDC) | payer OTHER, SELFPAY ==
[2025-05-19] VITALS (10 sets, daily range): BP systolic 116–155; BP diastolic 71–112; BMI 34.6
[2025-05-19] MEDS: NSS 241 ML IV (09:41)
[2025-05-19 10:49] LABS: ACT-LR - POC 269 Seconds (116-155)
[2025-05-19 10:59] LABS: ACT-LR - POC 361 Seconds (116-155)
[2025-05-19 11:29] LABS: ACT-LR - POC 277 Seconds (116-155)
--- NOTE | 2025-05-19 11:48 | PTCARENOTE ---
Pt transfer to [facility]
[2025-05-19] MEDS: NSS 1000 IV (12:23)
[2025-05-19] MEDS: PERCOCET 5/325 1 TABLET PO ×2 (12:40→19:03)
--- NOTE | 2025-05-19 12:47 | ITS.CL.CATH ---
Mail Handlers Supervisor - Catheterization
Cardiac Catheterization
Procedure Report:
LEFT HEART CATH AND CORONARY INTERVENTION
Date of Procedure: May 19, 2025
Referring: Dr. Mahendra Hanks
PROCEDURES:
1. Left heart catheterization, coronary angiogram
2. Moderate Sedation.
3. Successful percutaneous coronary artery intervention of long area of 80% proximal to mid RCA and 75 to 80% distal RCA stenosis with 2 separate Medtronic Sathish frontier drug-eluting stents (3.0 x 22 mm proximally and 2.75 x 22 mm distally),
postdilated using IVUS guidance with a 3.5 x 15 mm NC balloon proximally and 3.0 x 15 mm NC balloon distally at high pressures with an excellent angiographic and IVUS based result.
4. Intravascular ultrasound (IVUS)
INDICATION: This is a 69-year-old female with multiple cardiovascular risk factors who presented to [facility] for evaluation of substernal chest pain that began on the evening prior to admission persisting throughout much of the night.
Her symptoms improved with IV heparin and nitroglycerin but persisted and a low-grade fashion and she is now referred for coronary angiography
ACCESS: Right radial artery, 6 Maur[place]ian sheath
HEMODYNAMICS (mmHg):
AO (s/d) : 155/79
LVEDP : 19
CORONARY FINDINGS
Dominance: Right
Left Main Trunk (LMT): �Large caliber vessel that gives rise to the LAD and LCx branches and is free of angiographic disease.
Left Anterior Descending Artery (LAD): �Large caliber vessel that gives off a large caliber bifurcating major diagonal as it courses along the anterior inter-ventricular groove before wrapping around the cardiac apex. The mid-LAD has a 20-30%
stenosis. The inferior limb of the large diagonal has a 80% stenosis that is similar to [place].�
Left Circumflex Artery (LCx): �Large caliber vessel that gives off a small caliber first major obtuse marginal (OM), large caliber OM2, and small caliber OM3 as it courses along the atrio-ventricular (AV) groove. �The OM2 has ostial 40-50% stenosis
and recently placed stent at the continuation of the LCx after the OM2 take-off is widely patent.
Right Coronary Artery (RCA): �Large caliber dominant vessel that gives rise to the posterior descending artery (RPDA) and postero-lateral ventricular (RPLV) branches distally. �The proximal RCA has a long area of 80% stenosis. The mid-RCA has
diffuse 30% stenosis. The distal RCA has 75-80% stenosis. The RPL is a small caliber vessel and has a subtotal occlusion in the midportion with [id number] collaterals.
CORONARY INTERVENTION: We proceeded with percutaneous coronary intervention of the proximal to mid and distal RCA. The patient was given adjunctive IV unfractionated heparin (target ACT > 300 seconds). A 6 [place] JR4 guide catheter was utilized to
selectively engage the right coronary artery. A 190 cm 0.014 run-through wire was carefully navigated into the distal vessel. We predilated the lesions using a 2.5 mm semicompliant balloon with full expansion. We placed a 2.75 x 22 mm Medtronic
Sathish frontier drug-eluting stent distally and a 3.0 x 22 mm CADY proximally. Based on IVUS guidance the stents were postdilated using a 3.0 mm NC balloon at high pressures distally and a 3.5 mm NC balloon at high pressures proximally with an
excellent angiographic result and ROMY-3 flow into the RPA. Decision was made to not intervene on the small caliber RPL with [id number] collaterals present. Patient tolerated the procedure well with no acute complications. She was reloaded
with 300 mg of Plavix at the end of the case.
SEDATION: 60 minutes of procedural sedation was utilized. An independent medical clerical assistant was present to assist with and help manage the patient's level of consciousness and physiologic status
RADIATION SUMMARY: Fluoro Time (min): 16.2, Dose (mGy): 692.11, DAP (Gy.cm2) : 30.77
CONCLUSIONS
1. Successful percutaneous coronary artery intervention of long area of 80% proximal to mid RCA and 75 to 80% distal RCA stenosis with 2 separate Medtronic Sathish frontier drug-eluting stents (3.0 x 22 mm proximally and 2.75 x 22 mm distally),
postdilated using IVUS guidance with a 3.5 x 15 mm NC balloon proximally and 3.0 x 15 mm NC balloon distally at high pressures with an excellent angiographic and IVUS based result.
2. LVEDP of 19 mmHg.
RECOMMENDATIONS
1. Wean radial band per protocol. Monitor right hand perfusion and for bleeding from the radial site following removal of the vascular-band following trans-radial access.
2. Continue aggressive medical therapy and risk factor modification for secondary CAD prevention.
3. Continue ASA 81 mg daily for life.
4. Continue Plavix for at least 12 months of uninterrupted dual anti-platelet therapy given drug-eluting stent (CADY) implantation to mitigate the risk of stent thrombosis. This is not to be stopped for any reason without the guidance of a
online merchandising specialist.
5. Hydrate with normal saline to mitigate the risk of contrast-induced acute kidney injury.
6. Referral for outpatient cardiac rehab.
7. Follow-up with Dr. Hanks.
Copy to: Dr. Mahendra Hanks
Yari Morris MD, [facility], [facility]
--- NOTE | 2025-05-19 13:30 | CM ---
Reviewed chart. Met with Mrs. Shabazz to review discharge plans. She states prior to admission she resides with her significant other in a second floor walk-up apartment. She states prior to admission she was independent with ambulation and adls.
She states she does not have any DME in the home. She states she has a prescription plan and uses [facility].. The discharge plan is to return home with her significant other when medically stable.
[2025-05-19] MEDS: LIPITOR 40 MG PO (17:21)
--- NOTE | 2025-05-19 18:29 | PTCARENOTE ---
Pt received from laboratory inspector post planned PCI to RCA. radial band in place, removed per protocol without problem, no sign of bleeding or hematoma. Pt c/o chronic back pain which improved after percocet. Pt voiding without difficulty. Pt up walking
around unit, she reported being limited by SOB which she states is not new. Telemetry shows sinus estelle at a rate @45-50's.
[2025-05-19] MEDS: PEPCID 20 MG PO (19:02)
[2025-05-19] MEDS: NEURONTIN 600 MG PO (21:12)
--- NOTE | 2025-05-19 22:32 | PTCARENOTE ---
Assumed care of the pt at 1900. AAOx3 SR/SB on the monitor vss Rt radial cath site dressing c/d/i. Pt c/o low back pain Oxycodone given. Pt is independent in the room. Call herring within reach.
[2025-05-20 02:35] VITALS: BP 133/115
[2025-05-20] MEDS: PERCOCET 5/325 1 TABLET PO ×2 (02:37→08:14)
[2025-05-20 03:39] LABS: Hematocrit 34.5 % (37.0-47.0); Hemoglobin 11.1 g/dL (12.0-16.0); Mean Corp Hgb Conc. 32.2 g/dL (33.0-37.0); Mean Corpuscular Volume 91.5 fL (81.0-99.0); Platelet Count 193 10^3/uL (130-400); Red Cell Dist. Width 14.3 % (11.5-14.5)
[2025-05-20 03:54] LABS: Blood Urea Nitrogen 18 mg/dl (7-17); Calcium 9.5 mg/dl (8.4-10.2); Carbon Dioxide 24 mmol/L (22-30); Chloride 112 mmol/L (98-107); Estimated Creatinine Clearance 42 ml/min; Glucose 90 mg/dl (70-99); HDL Cholesterol 41 mg/dl; LDL Cholesterol, Calculated 62 mg/dl; Potassium 4.0 mmol/L (3.5-5.1); Sodium 141 mmol/L (135-145); Very Low Density Lipoprotein 21 mg/dl (0-30); eGFR 49.31
[2025-05-20] MEDS: SYNTHROID 75 MCG PO (06:30)
[2025-05-20 06:31] VITALS: BP 120/70
[2025-05-20 07:54] VITALS: BP 132/96
[2025-05-20] MEDS: ASPIR LOW (ENTERIC COATED) 81 MG PO (08:13)
[2025-05-20] MEDS: ZESTRIL 40 MG PO (08:13)
[2025-05-20] MEDS: LASIX 20 MG PO (08:14)
[2025-05-20] MEDS: PLAVIX 75 MG PO (08:14)
[2025-05-20] MEDS: TOPROL XL 25 MG PO (08:14)
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
--- NOTE | 2025-05-20 09:16 | CM ---
Reviewed chart. Met eith Mrs. Shabazz to review discharge plans. She states she is feeling well and maybe able to go home soon. Prior to admission she resides with her significant other in a second floor walk-up apartment. Prior to admission she
was independent with ambulation and adls. She does not have any DME in the home. She has a prescription plan and uses [facility].. The discharge plan is to return home with her significant other when medically stable.
[2025-05-20] MEDS: PEPCID PO (09:35)
[2025-05-20] MEDS: LASIX 20 MG IV (09:36)
--- NOTE | 2025-05-20 11:24 | W.DS.TRANS ---
DC Summary - [employer]
-
Discharge Instructions:
Discharge Diagnosis/Procedures Angioplasty with stent to RCA x2
Diet Low Cholesterol
Driving Restrictions No driving for 24 hours
Blood Work Check BMP in 1 week
Other Services Cardiac Rehab
Instructions:
Stand-Alone Forms: DC Instructions- Cath/EP Lab
Changes to Home Medications: No
Discharge Medications:
DC Medications w/original date entered in DNS:Net
lisinopril 40 mg tablet 40 mg PO DAILY Blood Pressure 03/05/19
aspirin 81 mg tablet,delayed release 81 mg PO DAILY #0 tabs 02/17/25
atorvastatin 40 mg tablet 40 mg PO QPM #30 tabs 02/17/25
levothyroxine 75 mcg tablet 75 mcg PO DAILY @ 0600 #30 tabs 02/17/25
famotidine 20 mg tablet (Pepcid) 20 mg PO BID Gastrointestinal Issue 02/25/25
acetaminophen 500 mg tablet (Tylenol Extra Strength) 500 mg PO Q6HPRN PRN mild pain 04/26/25
furosemide 20 mg tablet (Lasix) 20 mg PO DAILY Fluid Retention/Swelling 04/26/25
gabapentin 600 mg tablet 600 mg PO HS Neurological Condition 04/26/25
oxycodone-acetaminophen 5 mg-325 mg tablet (Percocet) 1 tab PO Q6H PRN back pain 04/26/25
metoprolol succinate 25 mg tablet,extended release 24 hr 25 mg PO DAILY 05/19/25
clopidogrel 75 mg tablet 75 mg PO DAILY #38 tabs 05/20/25
Home Medication Changes
Pending Results: No
[2025-05-20 11:39] VITALS: BP 133/108
--- NOTE | 2025-05-20 12:52 | PTCARENOTE ---
Pt seen by Toña Fonseca NP and . Pt had one dose of IV lasix and reported multiple voids. Pt walking in halls without problem. Telemetry and IV device removed . Discharge instructions reviewed with pt and her SO regarding activity and driving
restrictions, wound care, medications and their possible side effects, reporting cares and concerns and follow up appts and blood tests. Excellent understanding verbalized. Pt escorted out via wheelchair and discharged to home.
== END 2025-05-20 12:15 | disposition home or self-care (01) ==
LOC: CATH 08:40
PROVIDERS: Nurse Practitioner Adult Health; ATTENDING PHYSICIAN Internal Medicine Interventional Cardiology; FAMILY PHYSICIAN Family Medicine; OTHER PHYSICIAN Internal Medicine Cardiovascular Disease
DX: I25.10 Atherosclerotic heart disease of native coronary artery without angina pectoris (principal); I25.2 Old myocardial infarction; Z95.5 Presence of coronary angioplasty implant and graft; I11.0 Hypertensive heart disease with heart failure; I50.32 Chronic diastolic (congestive) heart failure; I46.9 Cardiac arrest, cause unspecified; M54.30 Sciatica, unspecified side; Z79.899 Other long term (current) drug therapy; Z79.891 Long term (current) use of opiate analgesic; E03.9 Hypothyroidism, unspecified; Z72.0 Tobacco use; Z79.82 Long term (current) use of aspirin; Z79.02 Long term (current) use of antithrombotics/antiplatelets; Z90.5 Acquired absence of kidney
CPT/HCPCS: 92978; 99152; 99153; 80048; 80061; 85027; 85347; 93005; 93458; C1725; C1753; C1874; C1894; C9600; Q9967